=== PATIENT | female | born 1970 | race Caucasian/White ===

== ENCOUNTER 2016-04-17 16:27 | Emergency (ER) | payer SELFPAY ==
[2016-04-17 16:36] VITALS: BP 172/78
--- NOTE | 2016-04-17 16:55 | ERNOTE ---
Lower Extremity HPI - Narrative Date of Service: 04/17/16 - General Lower Extremities Pain: knee: right Time Seen by Provider: 04/17/16 16:38 Source: patient, family Exam Limitations: no limitations - Immun/Allergies/Home Medications Immunizations: IMMUNIZATION HX Immunizations Up to Date Yes Allergies/Adverse Reactions: Allergies Allergy/AdvReac Type Severity Reaction Status Date / Time Penicillins Allergy Verified 04/17/16 16:36 Home Medications: HOME MEDICATIONS Lisinopril [Zestril] 20 mg PO DAILY #10 tab 05/06/14 [Last Taken 06/11/15] glipiZIDE [Glucotrol Xl] 5 mg PO BID #20 tab 05/06/14 [Last Taken 06/11/15] Cyclobenzaprine HCl [Flexeril] 10 mg PO TID PRN #30 tab 06/11/15 [Last Taken Unknown] metFORMIN HCL [Glucophage Xr] 1,000 mg PO BID 06/11/15 [Last Taken 06/11/15] HYDROcodone/ACETAMINOPHEN [Lyman 5-325] 1 - 2 tab PO QID PRN #20 tab 04/17/16 [ Last Taken Unknown] Ibuprofen [Motrin] 800 mg PO QID #30 tab 04/17/16 [Last Taken Unknown] - History of Present Illness Narrative: has been moving. today around noontime was carrying suitcases up the basement stairs, when she heard a pop, and has had significant pain since. Occurred: this afternoon Location of Incident: home Method of Injury: Reports: other Reason for Fall: Reports: unknown - no fall Loss of Consciousness: Reports: no loss of consciousness Modifying Factors - (Improves): Reports: rest Modifying Factors - (Worsens): Reports: jarring, movement Associated Symptoms: Reports: popping sensation Other Injuries: Reports: none Subsequent Symptoms: Denies: sensory loss, numbness, motor loss Prior Treament: Reports: similar symptoms before - years ago, the left knee Review of Systems - Review of Systems Constitutional: Present: no symptoms reported EYE: Present: no symptoms reported ENT: Present: no symptoms reported Respiratory: Present: no symptoms reported Cardiology: Present: no symptoms reported Gastrointestinal/Abdominal: Present: no symptoms reported Genitourinary: Present: no symptoms reported Musculoskeletal: Present: See HPI Skin: Present: no symptoms reported Neurological: Present: no symptoms reported Endocrine: Present: no symptoms reported Hematologic/Lymphatic: Present: no symptoms reported Psych: Present: no symptoms reported All Other Systems: All systems neg except as marked - Patient's Past Medical History Patient History - Medical: Diabetes Type 2, Hypothyroidism Patient History - Cardiac/Respiratory: Hypertension, Hyperlipidemia Patient History - Cancer: No Hx of Cancer Patient History - Surgical Procedures: Other - ovarian Patient History - Other: None - Family History Mother Family History - Medical: Diabetes Type 2 Family History - Cardiac/Respiratory: Hypertension Father Family History - Medical: Family History - Cardiac/Respiratory: Myocardial Infarction - Social History Living Situations: significant other Abuse History: No History of abuse Psych History: No pertinent hx Smoking Status: Never smoker Have you smoked in the past 12 months: No Alcohol Use: none Drug Use: none - Immunizations Immunizations Up to Date: Yes Physical Exam - Physical Exam General Appearance: Present: alert, no apparent distress, other - BMI 47 Eye Exam: Normal inspection: bilateral, PERRL: bilateral, EOMI: bilateral Ears, Nose, Throat: Present: normal ENT inspection Neck: Present: normal inspection Respiratory: Present: no respiratory distress Cardiovascular/Chest: Present: regular rate, rhythm Back Exam: Present: normal inspection Extremity Exam: Present: other - mild effusion right knee, with small tender Ortega's cyst. MCL also tender right knee. Neurological Exam: Present: alert, oriented, normal mood/affect, no motor/ sensory deficits Skin Exam: Present: normal color, warm/dry ED Progress - Vital Signs Patient's Vital Signs:: I have reviewed the patient's vital signs. Vital Signs: Vital Signs 04/17/16 16:34 Temperature 36.4 C L Pulse Rate 85 Respiratory 14 Rate Blood Pressure 172/78 O2 Sat by Pulse 100 Oximetry - Progress/Reassessment Chief Complaint: Lower Extremity Pain/ Injury Departure Clinical Impression: Bakers cyst Qualifiers: Laterality: right Qualified Code(s): M71.21 - Synovial cyst of popliteal space [Ortega], right knee Knee MCL sprain Qualifiers: Encounter type: initial encounter Laterality: right Qualified Code(s): S83.411A - Sprain of medial collateral ligament of right knee, initial encounter - Departure Disposition: Home self-care Condition: Good Instructions: Ortega Cyst, Knee Pain, RICE for Routine Care of Injuries, Easy-to -Read, Form - Excuse from Work, School, or Physical Activity Additional Instructions: Rest. Use ice 20 minutes hourly as often as possible. See your health care provider early next week. Referrals: Lauren Goode, PRINCESS [Primary Care Provider] - Prescriptions: HYDROcodone/ACETAMINOPHEN [Lyman 5-325] 1 - 2 tab PO QID PRN #20 tab PRN Reason: Pain Ibuprofen [Motrin] 800 mg PO QID #30 tab
== END 2016-04-17 17:01 | disposition home or self-care (01) ==
LOC: ER 16:27
DX: M71.21 Synovial cyst of popliteal space [Baker], right knee (principal); S83.411A Sprain of medial collateral ligament of right knee, initial encounter; X58.XXXA Exposure to other specified factors, initial encounter; Y93.89 Activity, other specified; Y92.008 Other place in unspecified non-institutional (private) residence as the place of occurrence of the external cause; E11.8 Type 2 diabetes mellitus with unspecified complications; I10 Essential (primary) hypertension

== ENCOUNTER 2016-04-26 17:34 | Emergency (ER) | payer SELFPAY ==
--- NOTE | 2016-04-26 18:46 | ERNOTE ---
Lower Extremity HPI - Narrative Date of Service: 04/26/16 - General Lower Extremities Pain: knee: right Time Seen by Provider: 04/26/16 18:19 Source: patient Exam Limitations: no limitations - Immun/Allergies/Home Medications Immunizations: IMMUNIZATION HX Immunizations Up to Date Yes History of Influenza Vaccine Yes Allergies/Adverse Reactions: Allergies Allergy/AdvReac Type Severity Reaction Status Date / Time Penicillins Allergy Verified 04/26/16 17:45 Home Medications: HOME MEDICATIONS Lisinopril [Zestril] 20 mg PO DAILY #10 tab 05/06/14 [Last Taken 06/11/15] glipiZIDE [Glucotrol Xl] 5 mg PO BID #20 tab 05/06/14 [Last Taken 06/11/15] metFORMIN HCL [Glucophage Xr] 1,000 mg PO BID 06/11/15 [Last Taken 06/11/15] HYDROcodone/ACETAMINOPHEN [[place] 5-325] 1 - 2 tab PO QID PRN #20 tab 04/17/16 [ Last Taken Unknown] Ibuprofen [Motrin] 800 mg PO QID #30 tab 04/17/16 [Last Taken Unknown] - History of Present Illness Narrative: Patient comes to ER with complains of having knee pain that is going on for last 8-10 days. Patient relates one day she just heard a pop in her knee and since then it her knee has been hurting. She is able to walk on it but it is sore. She has Percocet at home which she has tried to use some help. No recent fall or injury now. Occurred: other Modifying Factors - (Worsens): Reports: pain medication Associated Symptoms: Reports: snapping, popping sensation. Denies: unable to bear weight Other Injuries: Reports: none Prior Treament: Reports: recently seen, treated by physician Review of Systems - Review of Systems Constitutional: Present: no symptoms reported EYE: Present: no symptoms reported Respiratory: Present: no symptoms reported Musculoskeletal: Present: joint pain. Absent: muscle stiffness, joint swelling Neurological: Present: no symptoms reported All Other Systems: All systems neg except as marked - Patient's Past Medical History Patient History - Medical: Diabetes Type 2, Hypothyroidism Patient History - Cardiac/Respiratory: Hypertension Patient History - Cancer: No Hx of Cancer Patient History - Surgical Procedures: Other Patient History - Other: None - Family History Mother Family History - Medical: Diabetes Type 2 Family History - Cardiac/Respiratory: Hypertension Father Family History - Medical: Family History - Cardiac/Respiratory: Myocardial Infarction - Social History Living Situations: home Abuse History: No History of abuse Psych History: No pertinent hx Smoking Status: Never smoker Alcohol Use: none Drug Use: none - Immunizations Immunizations Up to Date: Yes History of Influenza Vaccine: Yes Physical Exam - Physical Exam General Appearance: Present: wd/wn, alert, no apparent distress Ears, Nose, Throat: Present: normal ENT inspection Neck: Present: normal inspection Respiratory: Present: no respiratory distress Cardiovascular/Chest: Present: regular rate, rhythm Extremity Exam: Present: normal inspection, non-tender, normal range of motion, no edema, other - right knee exam is unremarkable , range of motion is preserved. No swelling seeing signs of injury , Calf is not tender Neurological Exam: Present: alert, oriented, normal mood/affect Skin Exam: Present: normal color ED Progress - Vital Signs Vital Signs: Vital Signs 04/26/16 17:39 Temperature 36.4 C L Pulse Rate 77 Respiratory 16 Rate Blood Pressure 151/77 O2 Sat by Pulse 98 Oximetry - Progress/Reassessment Chief Complaint: Lower Extremity Pain/ Injury Departure Clinical Impression: Knee pain, right - Departure Disposition: Home self-care Instructions: Knee Pain Additional Instructions: Use Justice Wrap, Use tylenol 500 mg and Ibuprofen 400 mg alternativley every 6 hours for pain. Use percocet that you have as needed for pain. Follow up [facility] for further evaluation and treatment in next 1 to 3 days. If worse in anyway Please return to ER. Referrals: Lauren Goode AREA SECRETARY [Primary Care Provider] -
[2016-04-26 19:18] VITALS: BP 152/80
== END 2016-04-26 19:16 | disposition home or self-care (01) ==
LOC: ER 17:34
DX: M25.561 Pain in right knee (principal); E11.9 Type 2 diabetes mellitus without complications; I10 Essential (primary) hypertension

== ENCOUNTER 2016-11-26 16:36 | Emergency (ER) | payer MEDICAID ==
--- NOTE | 2016-11-26 17:18 | ERNOTE ---
Medical Problem HPI - General Chief Complaint: General Assessment Time Seen by Provider: 11/26/16 16:52 Source: patient, RN notes reviewed Exam Limitations: no limitations - Immun/Allergies/Home Medications Immunizations: IMMUNIZATION HX Immunizations Up to Date Yes History of Influenza Vaccine Yes Allergies/Adverse Reactions: Allergies Penicillins Allergy (Verified 11/26/16 16:44) Home Medications: HOME MEDICATIONS glipiZIDE [Glucotrol Xl] 5 mg PO BID #20 tab 05/06/14 [Last Taken 06/11/15] metFORMIN HCL [Glucophage Xr] 1,000 mg PO BID 06/11/15 [Last Taken 06/11/15] Ibuprofen [Motrin] 800 mg PO QID #30 tab 04/17/16 [Last Taken Unknown] Losartan/Hydrochlorothiazide [Losartan-Hctz 50-12.5 mg Tab] 1 each PO DAILY [Last Taken Unknown] - History of Present History Narrative: Patient reports that she woke up yesterday with body aches. She got through the day okay abeit in pain. Last night she ate at [employer] ([place] [employer], which made her abdomen hurt, she thought she just ate too much. Today she has hurt all day, all over, generalized aches, with again abdominal pain. She tried eating some string cheese, the pain in her abdomen got worse, and so then she tried crackers. She still has generalized aches with epigastric abdominal pain. She has been nauseated but no vomiting. Date (Duration): 11/24/16 Timing: getting worse Severity: moderate Modifying Factors - (Worsens): Present: eating, movement Review of Systems - Review of Systems Constitutional: Absent: recent illness, fever, chills, weight loss EYE: Present: no symptoms reported ENT: Absent: ear pain, sore throat Respiratory: Absent: shortness of breath, cough Cardiology: Absent: chest pain, palpitations Gastrointestinal/Abdominal: Present: nausea, abdominal pain. Absent: vomiting, diarrhea Genitourinary: Present: no symptoms reported Musculoskeletal: Present: muscle pain. Absent: back pain, muscle stiffness, neck pain Skin: Absent: rash Neurological: Present: no symptoms reported Endocrine: Present: no symptoms reported Hematologic/Lymphatic: Present: no symptoms reported Psych: Present: no symptoms reported - Patient's Past Medical History Patient History - Medical: Diabetes Type 2, Hypothyroidism Patient History - Cardiac/Respiratory: Hypertension Patient History - Cancer: No Hx of Cancer Patient History - Surgical Procedures: Other Patient History - Other: None - Family History Mother Family History - Medical: Diabetes Type 2 Family History - Cardiac/Respiratory: Hypertension Father Family History - Medical: Family History - Cardiac/Respiratory: Myocardial Infarction - Social History Living Situations: home Abuse History: No History of abuse Psych History: No pertinent hx - Immunizations Immunizations Up to Date: Yes History of Influenza Vaccine: Yes Physical Exam - Physical Exam General Appearance: Present: wd/wn, alert, no apparent distress, obese Head Exam: Present: normal inspection, no evidence of injury Eye Exam: Normal inspection: bilateral, PERRL: bilateral, EOMI: bilateral Ears, Nose, Throat: Present: normal ENT inspection Neck: Present: normal inspection, nontender Respiratory: Present: no respiratory distress, normal breath sounds, no accessory muscle use, chest nontender, lungs clear Cardiovascular/Chest: Present: regular rate, rhythm, no murmur Gastrointestinal/Abdominal: Present: normal bowel sounds, tenderness - mid- epigastric, Gonzalez sign. Absent: guarding, rebound Back Exam: Present: normal inspection, normal range of motion Extremity Exam: Present: normal inspection, non-tender, normal range of motion, no edema Neurological Exam: Present: alert, oriented, normal mood/affect, no motor/ sensory deficits Skin Exam: Present: normal color, warm/dry ED Progress - Results and Orders Patient's Lab Results:: I have reviewed the patient's lab results. Results and Orders: Laboratory Tests 11/26/16 11/26/16 11/26/16 18:03 19:15 19:15 WBC 13.1 H RBC 4.48 Hgb 12.9 Hct 38.8 MCV 86.6 MCH 28.8 MCHC 33.2 RDW 13.6 Plt Count 315 MPV 10.5 H Immature Gran % (Auto) 0.40 Immature Gran # (Auto) 0.05 H Neutrophils % 59.6 Lymphocytes % 30.3 Monocytes % 7.2 Eosinophils % 2.0 Basophils % 0.5 Nucleated RBC % 0.0 Neutrophils # 7.8 H Lymphocytes # 4.0 H Monocytes # 0.9 Eosinophils # 0.3 Absolute Basophils 0.1 Sodium 135 Plasma Sodium 136 Potassium 3.7 Chloride 99 Carbon Dioxide 28.7 Anion Gap 11.0 BUN 17 Creatinine 1.01 Est GFR (Non-Af Amer) 63 D BUN/Creatinine Ratio 16.8 Random Glucose 166 H Calcium 9.5 Calcium Adj for Albumin 9.5 Total Bilirubin 0.5 AST 32 ALT 41 Alkaline Phosphatase 79 Total Protein 8.6 H Albumin 3.6 Amylase 51 Lipase 303 Urine Color Urine Appearance Urine pH Ur Specific [place] Urine Protein Urine Glucose (UA) Urine Ketones Urine Blood Urine Nitrate Urine Bilirubin Urine Urobilinogen Ur Leukocyte Esterase Urine RBC Urine WBC Ur Epithelial Cells Urine Bacteria Urine Culture Comments Influenza Type A Ag Negative Influenza Type B Ag Negative 11/26/16 19:15 WBC RBC Hgb Hct MCV MCH MCHC RDW Plt Count MPV Immature Gran % (Auto) Immature Gran # (Auto) Neutrophils % Lymphocytes % Monocytes % Eosinophils % Basophils % Nucleated RBC % Neutrophils # Lymphocytes # Monocytes # Eosinophils # Absolute Basophils Sodium Plasma Sodium Potassium Chloride Carbon Dioxide Anion Gap BUN Creatinine Est GFR (Non-Af Amer) BUN/Creatinine Ratio Random Glucose Calcium Calcium Adj for Albumin Total Bilirubin AST ALT Alkaline Phosphatase Total Protein Albumin Amylase Lipase Urine Color Yellow Urine Appearance Clear Urine pH 6.0 Ur Specific [place] 1.020 Urine Protein Negative Urine Glucose (UA) Negative Urine Ketones Negative Urine Blood Negative Urine Nitrate Negative Urine Bilirubin Negative Urine Urobilinogen Normal Ur Leukocyte Esterase Negative Urine RBC None seen Urine WBC None seen Ur Epithelial Cells 0-5 Urine Bacteria None seen Urine Culture Comments No culture indicated Influenza Type A Ag Influenza Type B Ag - Vital Signs Patient's Vital Signs:: I have reviewed the patient's vital signs. Vital Signs: Vital Signs 11/26/16 16:40 Temperature 37.0 C Pulse Rate 95 Respiratory 12 Rate Blood Pressure 147/81 O2 Sat by Pulse 98 Oximetry - Progress/Reassessment Chief Complaint: General Assessment Departure Clinical Impression: Viral illness, Gallbladder attack - Departure Disposition: Home self-care Condition: Good Instructions: Biliary Colic, Low-Fat Diet for Pancreatitis or Gallbladder Conditions Referrals: Lauren Goode, CLASSRO[employer] TECHNOLOGY TECHNICIAN [Primary Care Provider] - (3-4 days, sooner if you worsen)
[2016-11-26 18:44] VITALS: BP 131/69
[2016-11-26 19:19] LABS: Hematocrit 38.8 % (37.0-47.0); Hemoglobin 12.9 gm/dL (12.5-16.0); Mean Cell Volume 86.6 fl (78-100); Mean Corpuscular Hemoglobin 28.8 pg (27-31); Mean Corpuscular Hgb Conc 33.2 g/dl (32-36); Mean Platelet Volume 10.5 fl (6.0-9.5); Neutrophil # 7.8 K/mm3 (1.3-6.0); Neutrophil % 59.6 % (42-75.0); Platelet Count 315 K/mm3 (150-450); Red Blood Count 4.48 M/mm3 (4.2-5.4); Red Cell Distribution Width 13.6 % (11.5-14.0); White Blood Count 13.1 K/mm3 (4.0-10.5)
[2016-11-26 19:32] LABS: Urine Appearance Clear; Urine Bacteria None Seen; Urine Bilirubin Negative (NEGATIVE); Urine Blood Negative /ul (NEGATIVE); Urine Color Yellow; Urine Ketone Negative (NEGATIVE); Urine Nitrite Negative (NEGATIVE); Urine Protein Negative (NEGATIVE); Urine RBC None Seen /hpf (0-5); Urine Urobilinogen Normal (NORMAL); Urine WBC None Seen /hpf (0-5)
[2016-11-26 19:34] LABS: Albumin * 3.6 gm/dl (3.4-5.0); BUN/Creatinine Ratio 16.8 (9.0-21.6); Bilirubin, Total 0.5 mg/dL (0.0-1.1); Ca. Corrected For Albumin 9.5 mg/dL (8.4-10.2); Calcium * 9.5 mg/dL (7.9-10.9); Carbon Dioxide 28.7 mmol/L (24-32.6); Potassium 3.7 mmol/L (3.4-4.6); Total Protein 8.6 gm/dL (6.2-8.2)
== END 2016-11-26 20:05 | disposition home or self-care (01) ==
LOC: ER 16:36
DX: B34.9 Viral infection, unspecified (principal); K81.0 Acute cholecystitis; E11.9 Type 2 diabetes mellitus without complications; E03.9 Hypothyroidism, unspecified; I10 Essential (primary) hypertension